=== PATIENT | male | born 1990 | race Caucasian/White ===

== ENCOUNTER → 2016-12-14 | Outpatient (CLI) | payer MEDICAID ==
[~2016-12-14] MED LIST: DEPA500T3 PO; DIVA500T3 PO; RANI300T PO; SERO200T PO; SERO25TA PO; TERA1CAP3 PO
--- NOTE | 2016-12-14 14:59 | EKG ---
Date Performed: 12/14/2016 Time Performed: 09:25:38 PTAGE: 26 years EKG: SINUS BRADYCARDIA INCOMPLETE RIGHT BUNDLE BRANCH BLOCK BORDERLINE ECG NO PREVIOUS TRACING DOCTOR: Jason Ho Interpretating Date/Time 12/14/2016 14:56:29
== END ==
LOC: HCAV 09:01
PROVIDERS: ATTEND Psychiatry & Neurology Child & Adolescent Psychiatry
DX: F25.0 Schizoaffective disorder, bipolar type (principal); F84.0 Autistic disorder; F43.10 Post-traumatic stress disorder, unspecified; F41.8 Other specified anxiety disorders; R00.1 Bradycardia, unspecified
CPT/HCPCS: 93005

== ENCOUNTER 2017-08-20 23:26 | Emergency (ER) | payer MEDICAID ==
[2017-08-20 23:31] VITALS: BP 126/77; PULSE 70; RESP 17; TEMP 98; O2SAT 98
[2017-08-20] MEDS ORDERED: DICL75TA PO (23:35)
[2017-08-20] MEDS ORDERED: ROBA500T PO (23:35)
--- NOTE | 2017-08-20 23:41 | PD ---
HPI Chief Complaint: Fall Time Seen by Provider: 23:29 Travel History International Travel<30 days: No Contact w/Intl Traveler<30days: No Traveled to known affect area: No History of Present Illness HPI 26-year-old white male presents emergency department by EMS with complaints of left shoulder spasm. He states that he had helped move his girlfriend and yesterday and moved a lot of furniture. The patient states that the pain was so severe it caused him to fall out of bed. He denies injury to his head, neck or back. Pain is moderate. Worse with movement and palpation. No alleviating factors. PFSH Past Medical History Bipolar Disorder: Yes Depression: Yes Cardiovascular Problems: Yes (HEART MURMUR/PALPITATIONS) Diminished Hearing: No Psychiatric: Yes (BIPOLAR, ASPERGER'S, ADHD, SCHIZOAFFECTIVE) Respiratory: Yes (CHRONIC BRONCHITIS/ASTHMA/PNA) Past Surgical History Oral Surgery: Yes (wisdom teeth extraction) Social History Alcohol Use: No Tobacco Use: No Substance Use: No Allergies-Medications (Allergen,Severity, Reaction): Coded Allergies: lithium (Unverified Adverse Reaction, Intermediate, Diarrhea, 08/20/17) Uncoded Allergies: ARTIFICIAL SWEETENERS (Adverse Reaction, Severe, 04/21/16) Reported Meds & Prescriptions Reported Meds & Active Scripts Active Diclofenac Sodium DR (Diclofenac Sodium) 75 Mg Tabdr 75 Mg PO BID Robaxin (Methocarbamol) 500 Mg Tab 500 Mg PO QID 7 Days Reported Divalproex ER (Divalproex Sodium) 500 Mg Tab 1,000 Mg PO HS Ranitidine (Ranitidine HCl) 300 Mg Tab 300 Mg PO HS Seroquel (Quetiapine Fumarate) 25 Mg Tab 25 Mg PO DAILY Seroquel (Quetiapine Fumarate) 200 Mg Tab 200 Mg PO HS Terazosin (Terazosin HCl) 1 Mg Cap 1 Mg PO HS Depakote ER (Divalproex Sodium) 500 Mg Elham 500 Mg PO DAILY@0600 Review of Systems Except as stated in HPI: all other systems reviewed are Neg Physical Exam Narrative GENERAL: Well-developed, well-nourished in no acute distress. Nontoxic appearing. HEAD: Normocephalic, atraumatic. EYES: Pupils equal round and reactive. Extraocular motions intact. No scleral icterus. No injection or drainage. ENT: TMs clear without erythema. The external auditory canals clear. Nose: clear . Posterior pharynx is pink and moist. No tonsillar edema or exudate. Uvula midline. Airway patent. NECK: Trachea midline.Supple, tender left paracervical muscles down into the trapezius, moves head freely. No central bony tenderness mild spasm. CARDIOVASCULAR: Regular rate and rhythm without murmurs, gallops, or rubs. RESPIRATORY: Clear to auscultation. Breath sounds equal bilaterally. No wheezes , rales, or rhonchi. GASTROINTESTINAL: Abdomen soft, non-tender, nondistended. No hepato-splenomegaly , or palpable masses. No guarding. EXTREMITIES: No clubbing, cyanosis, or edema. No joint tenderness, effusion, or edema noted. BACK: Nontender without deformity or crepitance. No flank tenderness. Data Data Last Documented VS Vital Signs Date Time Temp Pulse Resp B/P (MAP) Pulse Ox O2 Delivery O2 Flow Rate FiO2 08/20/17 23:31 98.0 70 17 126/77 (93) 98 Orders Orders Ketorolac Inj (Toradol Inj) (08/20/17 23:45) Orphenadrine Inj (Norflex Inj) (08/20/17 23:45) Ed Discharge Order (08/20/17 23:37) MDM Medical Decision Making Medical Screen Exam Complete: Yes Emergency Medical Condition: Yes Medical Record Reviewed: Yes Differential Diagnosis MDM: High Differential diagnoses: Fracture, sprain, strain, dislocation, contusion, neurovascular injury Narrative Course Patient is given Toradol 60 mg and Norflex 60 mg IM. This is cervical strain Diagnosis Primary Impression: Cervical strain Qualified Codes: S16.1XXA - Strain of muscle, fascia and tendon at neck level , initial encounter Patient Instructions: General Instructions Additional Instructions: Rest. Ice for the next 3 days followed by heat . Robaxin and Voltaren. Follow-up with a primary care doctor in one week. Return to the ER for emergencies. Med/Other Pt SpecificInfo: Prescription(s) given Scripts Diclofenac Sodium DR (Diclofenac Sodium DR) 75 Mg Tabdr 75 MG PO BID, #14 TAB 0 Refills Prov: Marcos Barber MD 08/20/17 Methocarbamol (Robaxin) 500 Mg Tab 500 MG PO QID for Muscle Spasm for 7 Days, TAB 0 Refills Prov: Marcos Barber MD 08/20/17 Disposition: 01 DISCHARGE HOME Condition: Stable Herbie Plunkett Aug 20, 2017 23:41
[2017-08-20] MEDS ORDERED: KETOROLAC TROMETHAMINE 60 MG/2 ML (IM) VIAL IM ONE (23:45)
[2017-08-20] MEDS ORDERED: ORPHENADRINE INJ 60 MG/2 ML AMP IM ONE (23:45)
== END 2017-08-21 00:07 | disposition home or self-care (01) ==
LOC: NEPD 23:26
DX: S16.1XXA Strain of muscle, fascia and tendon at neck level, initial encounter (principal); J45.909 Unspecified asthma, uncomplicated; F31.9 Bipolar disorder, unspecified; F84.5 Asperger's syndrome; W06.XXXA Fall from bed, initial encounter; Z88.8 Allergy status to other drugs, medicaments and biological substances; Z79.899 Other long term (current) drug therapy
CPT/HCPCS: 96372; 99283; J1885; J2360

== ENCOUNTER → 2017-10-31 | Outpatient (CLI) | payer MEDICAID ==
[~2017-10-31] MED LIST changes: +DICL75TA PO; +ROBA500T PO
--- NOTE | 2017-10-31 12:39 | EKG ---
Date Performed: 10/31/2017 Time Performed: 10:04:28 PTAGE: 26 years EKG: Sinus bradycardia with sinus arrhythmia PREVIOUS TRACING : 12/14/[address] 09.[address] elevation likely due to early repolarization, but doubt any change from the prior tracing. DOCTOR: Nilson Murguia Interpretating Date/Time 10/31/2017 12:38:19
== END ==
LOC: HCAV 10:13
PROVIDERS: ATTEND Psychiatry & Neurology Child & Adolescent Psychiatry
DX: F25.0 Schizoaffective disorder, bipolar type (principal); F84.0 Autistic disorder; F43.12 Post-traumatic stress disorder, chronic; I49.8 Other specified cardiac arrhythmias
CPT/HCPCS: 93005